=== PATIENT | female | born 1985 | race African-American/Black ===

== ENCOUNTER 2017-11-08 15:48 | Emergency (ER) | payer MEDICAID ==
[~2017-11-08] VITALS: Ht 162.6 cm; Wt 153.0 kg
[~2017-11-08 15:48] MED LIST: BACT800T5 PO; CLIN150C14 PO; HYDR-3288 PO
[2017-11-08 15:52] VITALS: BP 123/80; PULSE 128; RESP 18; TEMP 98.7; O2SAT 98
[2017-11-08 16:03] VITALS: PULSE 87
--- NOTE | 2017-11-08 18:10 | PD ---
HPI Chief Complaint: ENT Complaint Time Seen by Provider: 18:03 Travel History International Travel<30 days: No Contact w/Intl Traveler<30days: No Traveled to known affect area: No History of Present Illness HPI 32-year-old female presents to the emergency department for evaluation of sore throat that started 2 days ago. She reports difficulty swallowing due to pain. She also reports right ear pain. She states she has been running a fever at home. No other upper respiratory symptoms. Patient reports no chronic medical problems and takes no prescribed medications. No exacerbating or alleviating factors. Moderate severity. PFSH Past Medical History Asthma: Yes (BRONCHIAL) Blood Disorders: No Cancer: No Cardiovascular Problems: No (sometimes it flutters) Diminished Hearing: No Endocrine: No Genitourinary: No Musculoskeletal: No Neurologic: No Psychiatric: No Reproductive: No Respiratory: Yes Immunizations Current: Yes Tetanus Vaccination: < 5 Years Influenza Vaccination: No ?: Unknown LMP: 10/2017 : 0 Para: 0 Miscarriage: 0 : 0 Past Surgical History Other Surgery: Yes (RIGHT ANKLE SURGERY) Social History Alcohol Use: No Tobacco Use: No Substance Use: No Allergies-Medications (Allergen,Severity, Reaction): Coded Allergies: No Known Allergies (Verified Adverse Reaction, Unknown, 11/08/17) Reported Meds & Prescriptions Reported Meds & Active Scripts Active No Active Prescriptions or Reported Medications Review of Systems Except as stated in HPI: all other systems reviewed are Neg Physical Exam Narrative GENERAL: Well-nourished, well-developed female patient, ambulatory. Afebrile. SKIN: Focused skin assessment warm/dry. HEAD: Normocephalic. Atraumatic. ENT: Mucosa pink and moist. Bilateral tonsils 2+ with exudates. No uvular edema. Uvula is midline. Uvular edema. No uvular, palatal, or tonsillar deviation. Airway patent. Nasal turbinates appear normal without nasal blood, purulent drainage or septal hematoma. Bilateral tympanic membranes are clear without erythema or perforation. EYES: No scleral icterus. No injection or drainage. NECK: Supple, trachea midline. No JVD or lymphadenopathy. CARDIOVASCULAR: Regular rate and rhythm without murmurs, gallops, or rubs. RESPIRATORY: Breath sounds equal bilaterally. No accessory muscle use. Lungs sounds are clear to auscultation. GASTROINTESTINAL: Abdomen soft, non-tender, nondistended. MUSCULOSKELETAL: No cyanosis, or edema. BACK: Nontender without obvious deformity. No CVA tenderness. Data Data Last Documented VS Vital Signs Date Time Temp Pulse Resp B/P (MAP) Pulse Ox O2 Delivery O2 Flow Rate FiO2 11/08/17 16:03 87 11/08/17 15:52 98.7 18 123/80 (94) 98 Orders Orders Group A Rapid Strep Screen (11/08/17 18:08) Dexamethasone Inj (Decadron Inj) (11/08/17 18:15) MDM Medical Decision Making Medical Screen Exam Complete: Yes Emergency Medical Condition: Yes Medical Record Reviewed: Yes Differential Diagnosis Strep pharyngitis versus viral pharyngitis versus otitis media versus peritonsillar abscess Narrative Course 32-year-old female presents to the emergency department for evaluation of sore throat for 2 days. Patient is given dexamethasone 8 mg IM. Strep swab is ordered and pending. Strep is positive. Patient will be discharged with a prescription for amoxicillin, prednisone. She is to follow-up with a primary care physician. She is return here for any acute worsening of symptoms. She verbalizes agreement and understanding. The patient was discharged in stable condition with instructions, including return instructions and follow up instructions. Diagnosis Primary Impression: Strep pharyngitis Referrals: Primary Care Physician 2 days Patient Instructions: General Instructions, Strep Throat (ED) Departure Forms: Tests/Procedures, Work Release Enter return to work date: Nov 11, 2017 Additional Instructions: Take antibiotic as directed until gone. Take prednisone as directed. Start this tomorrow. Warm salt water gargles. Tylenol/ibuprofen [id number] as needed for pain/fever. Follow-up with your primary care physician. Return to the emergency department for any acute worsening of symptoms. Med/Other Pt SpecificInfo: Prescription(s) given Scripts Prednisone (Prednisone) 20 Mg Tab 40 MG PO DAILY for 4 Days, #8 TAB 0 Refills Prov: Marilee Cavazos 11/08/17 Amoxicillin Liq (Amoxicillin Liq) 250 Mg/5 Ml Susp 500 MG PO TID for Infection for 10 Days, ML 0 Refills Prov: Marilee Cavazos 11/08/17 Disposition: 01 DISCHARGE HOME Condition: Stable Marilee Cavazos Nov 08, 2017 18:10
[2017-11-08] MEDS ORDERED: DEXAMETHASONE SOD PHOS 4 MG/ML VIAL IM ONE (18:15)
[2017-11-08] MEDS ORDERED: PRED20 PO (18:43)
[2017-11-08] MEDS ORDERED: AMOX250S2 PO (18:43)
== END 2017-11-08 19:42 | disposition home or self-care (01) ==
LOC: NEPD 15:48
DX: J02.0 Streptococcal pharyngitis (principal)
CPT/HCPCS: 87880; 96372; 99284; J1100

== ENCOUNTER 2017-11-14 00:19 | Emergency (ER) | payer MEDICAID ==
[~2017-11-14] VITALS: Ht 162.6 cm; Wt 140.0 kg
[~2017-11-14 00:19] MED LIST changes: +AMOX250S2 PO; -BACT800T5 PO; -CLIN150C14 PO; -HYDR-3288 PO; +PRED20 PO
[2017-11-14 00:22] VITALS: BP 140/83; PULSE 121; RESP 16; TEMP 99.2; O2SAT 98
[2017-11-14] MEDS ORDERED: PENI500T PO (01:06)
--- NOTE | 2017-11-14 01:10 | PD ---
HPI Chief Complaint: ENT Complaint Time Seen by Provider: 00:58 Travel History International Travel<30 days: No Contact w/Intl Traveler<30days: No Traveled to known affect area: No History of Present Illness HPI 32-year-old black female presents to emergency department with complaints of sore throat 4 days. She states that she has difficulty swallowing. Pain is moderate. She states that she has had some slight congestion and cough. No fever chills. No nausea vomiting. No abdominal pain or urinary symptoms. No myalgias or arthralgias. no alleviating factors. Exacerbated by swallowing. PFSH Past Medical History Asthma: Yes (BRONCHIAL) Blood Disorders: No Cancer: No Diminished Hearing: No Endocrine: No Genitourinary: No Musculoskeletal: No Neurologic: No Psychiatric: No Reproductive: No Respiratory: Yes Immunizations Current: Yes ?: Not LMP: 11/06/17 : 0 Para: 0 Miscarriage: 0 : 0 Past Surgical History Other Surgery: Yes (RIGHT ANKLE SURGERY) Social History Alcohol Use: No Tobacco Use: No Substance Use: No Allergies-Medications (Allergen,Severity, Reaction): Coded Allergies: No Known Allergies (Verified Adverse Reaction, Unknown, 11/14/17) Reported Meds & Prescriptions Reported Meds & Active Scripts Active Penicillin V Potassium 500 Mg Tab 500 Mg PO Q12HR 10 Days Prednisone 20 Mg Tab 40 Mg PO DAILY 4 Days Amoxicillin Liq (Amoxicillin) 250 Mg/5 Ml Susp 500 Mg PO TID 10 Days Review of Systems Except as stated in HPI: all other systems reviewed are Neg Physical Exam Narrative GENERAL: Well-developed, well-nourished in no acute distress. Nontoxic appearing. HEAD: Normocephalic, atraumatic. EYES: Pupils equal round and reactive. Extraocular motions intact. No scleral icterus. No injection or drainage. ENT: TMs clear without erythema. The external auditory canals clear. Nose: clear . Posterior pharynx is minimally erythematous and moist. No tonsillar edema or exudate. Uvula midline. Airway patent. NECK: Trachea midline.Supple, nontender, moves head freely. No central bony tenderness or spasm. CARDIOVASCULAR: Regular rate and rhythm without murmurs, gallops, or rubs. RESPIRATORY: Clear to auscultation. Breath sounds equal bilaterally. No wheezes , rales, or rhonchi. GASTROINTESTINAL: Abdomen soft, non-tender, nondistended. No hepato-splenomegaly , or palpable masses. No guarding. EXTREMITIES: No clubbing, cyanosis, or edema. No joint tenderness, effusion, or edema noted. BACK: Nontender without deformity or crepitance. No flank tenderness. Data Data Last Documented VS Vital Signs Date Time Temp Pulse Resp B/P (MAP) Pulse Ox O2 Delivery O2 Flow Rate FiO2 11/14/17 00:22 99.2 121 16 140/83 (102) 98 Room Air Orders Orders Amoxicillin (Trimox) (11/14/17 01:15) Ed Discharge Order (11/14/17 01:06) MDM Medical Decision Making Medical Screen Exam Complete: Yes Emergency Medical Condition: Yes Medical Record Reviewed: Yes Differential Diagnosis MDM: High Differential diagnoses: Strep throat, viral pharyngitis, mono, peritonsillar abscess, retropharyngeal abscess, Jc's angina Narrative Course The patient will be treated for presumptive strep throat. She is given amoxicillin 500 mg by mouth. This is acute pharyngitis Diagnosis Primary Impression: acute pharyngitis Patient Instructions: General Instructions Additional Instructions: Rest. Force fluids. Saltwater gargles. Tylenol and Advil. Chloraseptic [place] Cepastat lozenge. Pen-Vee K. Follow-up with a primary care doctor in one week. Return to the ER if any problems. Med/Other Pt SpecificInfo: Prescription(s) given Scripts Penicillin V Potassium (Penicillin V Potassium) 500 Mg Tab 500 MG PO Q12HR for Infection for 10 Days, TAB 0 Refills Prov: Valentin Samuel MD 11/14/17 Disposition: 01 DISCHARGE HOME Condition: Stable Xavier Hua Nov 14, 2017 01:10
[2017-11-14] MEDS ORDERED: AMOXICILLIN (TRIHYDRATE) 500 MG CAP PO ONE (01:15)
== END 2017-11-14 01:46 | disposition home or self-care (01) ==
LOC: NEPD 00:19
DX: J02.9 Acute pharyngitis, unspecified (principal); J45.909 Unspecified asthma, uncomplicated
CPT/HCPCS: 99283

== ENCOUNTER 2017-11-19 19:56 | Emergency (ER) | payer MEDICAID ==
[~2017-11-19] VITALS: Ht 162.6 cm; Wt 145.4 kg
[~2017-11-19 19:56] MED LIST changes: +PENI500T PO
[2017-11-19 19:59] VITALS: BP 136/83; PULSE 94; RESP 16; TEMP 98.7; O2SAT 99
--- NOTE | 2017-11-19 21:25 | PD ---
HPI Chief Complaint: Facial Pain or Swelling Time Seen by Provider: 21:24 Travel History International Travel<30 days: No Contact w/Intl Traveler<30days: No Traveled to known affect area: No History of Present Illness HPI 32-year-old female came to the emergency room with history of right sided facial numbness and weakness. She also noticed that her right eye has been constant a tearing up. Patient says this started this morning when she woke up. She has had right earache for past 2 days. Patient does not have any significant medical history as far as she knows. Vital signs otherwise stable. No history of weakness of her arm or legs. This is never happened to her in the past. She thinks it has progressively worsened through the day. [facility] Past Medical History Narrative Medical List of her past medical, surgical, social and family history is reviewed from the nursing note. Asthma: Yes (BRONCHIAL) Blood Disorders: No Cancer: No Diminished Hearing: No Endocrine: No Genitourinary: No Musculoskeletal: No Neurologic: No Psychiatric: No Reproductive: No Respiratory: Yes Immunizations Current: Yes ?: Not : 0 Para: 0 Miscarriage: 0 : 0 Past Surgical History Other Surgery: Yes (RIGHT ANKLE SURGERY) Social History Alcohol Use: No Tobacco Use: No Substance Use: No Allergies-Medications (Allergen,Severity, Reaction): Coded Allergies: No Known Allergies (Verified Adverse Reaction, Unknown, 11/14/17) Comments No known drug allergies. Reported Meds & Prescriptions Reported Meds & Active Scripts Active Artificial Tears Opth Oint (White Petrolatum-Mineral Oil Opth Oint 83-15%) 83-15 % Oint 1 Applic EACH EYE 5 TIMES A DAY Pull down lower eyelid & apply 1/4 inch to inside of eyelid. Amoxicillin 500 Mg Cap 500 Mg PO TID 10 Days Acyclovir 800 Mg Tab 800 Mg PO 5 TIMES A DAY 5 Days Prednisone 20 Mg Tab 40 Mg PO BID 5 Days Penicillin V Potassium 500 Mg Tab 500 Mg PO Q12HR 10 Days Narrative Medication List of her home medications reviewed from the nursing note. Review of Systems Except as stated in HPI: all other systems reviewed are Neg Neurologic: Positive: Weakness Physical Exam Narrative GENERAL: Awake, alert, no obvious distress, morbidly obese SKIN: Focused skin assessment warm/dry. HEAD: Atraumatic. Normocephalic. EYES: Pupils equal and round. No scleral icterus. No injection or drainage. ENT: No nasal bleeding or discharge. Mucous membranes pink and moist. Right TM dull, bulging. FACE: There is a weakness of the right side of the face which is accentuated when smiling or trying to grimace. The eye does close but not as fully as the right eye and it is asymmetrical. The forehead muscles are clearly weaker on that side when the patient tries to furrow the brow. NECK: Trachea midline. No JVD. CARDIOVASCULAR: Regular rate and rhythm. No murmur appreciated. RESPIRATORY: No accessory muscle use. Clear to auscultation. Breath sounds equal bilaterally. GASTROINTESTINAL: Abdomen soft, non-tender, nondistended. Hepatic and splenic margins not palpable. MUSCULOSKELETAL: No obvious deformities. No clubbing. No cyanosis. No edema. NEUROLOGICAL: Awake and alert. No obvious cranial nerve deficits. Motor grossly within normal limits. Normal speech. PSYCHIATRIC: Appropriate mood and affect; insight and judgment normal. Data Data Last Documented VS Vital Signs Date Time Temp Pulse Resp B/P (MAP) Pulse Ox O2 Delivery O2 Flow Rate FiO2 11/19/17 21:50 11/19/17 19:59 98.7 94 16 99 Room Air Orders Orders Prednisone (Deltasone) (11/19/17 21:45) Acyclovir (Zovirax) (11/19/17 21:45) Amoxicillin (Trimox) (11/19/17 21:45) Blood Glucose (11/19/17 21:36) Ed Discharge Order (11/19/17 21:39) MDM Medical Decision Making Medical Screen Exam Complete: Yes Emergency Medical Condition: Yes Medical Record Reviewed: Yes Differential Diagnosis Alvarez's palsy Narrative Course 9:55 PM patient is given by mouth prednisone, by mouth acyclovir and by mouth amoxicillin. I've given her instructions to follow up with cake decorator as well as taping her eye shut at night during sleep. She'll go home with prescriptions. Procedures EKG Prior to Arrival: No Diagnosis Primary Impression: Alvarez's palsy Additional Impressions: Otitis media Qualified Codes: H66.001 - Acute suppurative otitis media without spontaneous rupture of ear drum, right ear Otalgia Qualified Codes: H92.01 - Otalgia, right ear Referrals: Chani Ball MD 1 day Primary Care Physician Additional Instructions: Please take the medications as per the prescription direction. Call the cake decorator office tomorrow morning who is name and number been given to you. Tape the eye to night when sleeping. Return to ER if condition worsens or any other new concerns. Med/Other Pt SpecificInfo: Prescription(s) given Scripts White Petrolatum-Mineral Oil Opth Oint 83-15% (Artificial Tears Opth Oint) 83-15 % Oint 1 APPLIC EACH EYE 5 TIMES A DAY for Dry Eye, #3.5 GM 0 Refills Pull down lower eyelid & apply 1/4 inch to inside of eyelid. Prov: Luis Rajput MD 11/19/17 Amoxicillin (Amoxicillin) 500 Mg Cap 500 MG PO TID for Infection for 10 Days, CAP 0 Refills Prov: Luis Rajput MD 11/19/17 Acyclovir (Acyclovir) 800 Mg Tab 800 MG PO 5 TIMES A DAY for Mgmt Viral Infection for 5 Days, TAB 0 Refills Prov: Luis Rajput MD 11/19/17 Prednisone (Prednisone) 20 Mg Tab 40 MG PO BID for 5 Days, #20 TAB 0 Refills Prov: Luis Rajput MD 11/19/17 Disposition: 01 DISCHARGE HOME Condition: Stable Luis Rajput MD Nov 19, 2017 21:25
[2017-11-19] MEDS ORDERED: WHIT15OI EACH EYE (21:42)
[2017-11-19] MEDS ORDERED: ACYC800T PO (21:42)
[2017-11-19] MEDS ORDERED: PRED20 PO (21:42)
[2017-11-19] MEDS ORDERED: AMOX500C PO (21:42)
[2017-11-19] MEDS ORDERED: ACYCLOVIR 800 MG TAB PO ONE (21:45)
[2017-11-19] MEDS ORDERED: AMOXICILLIN (TRIHYDRATE) 500 MG CAP PO ONE (21:45)
[2017-11-19] MEDS ORDERED: predniSONE 20 MG TAB PO ONE (21:45)
== END 2017-11-19 22:05 | disposition home or self-care (01) ==
LOC: NEPD 19:56
DX: G51.0 Bell's palsy (principal); H66.001 Acute suppurative otitis media without spontaneous rupture of ear drum, right ear; H92.01 Otalgia, right ear
CPT/HCPCS: 99283; J7512